=== PATIENT | female | born 1970 | race American Indian/Alaskan Native ===

== ENCOUNTER 2018-02-02 12:35 | Emergency (ER) | payer OTHER ==
[2018-02-02 13:16] LABS: Basophils % (Auto) 0.7 % (0.0-1.8); Eosinophils # (Auto) 0.1 K/mm3 (0.0-0.4); Hematocrit 38.9 % (30.3-42.9); Hemoglobin 13.3 gm/dl (10.1-14.3); Lymphocytes # (Auto) 2.1 K/mm3 (1.2-5.4); Lymphocytes % (Auto) 34.9 % (13.4-35.0); Mean Corpuscular HGB Conc 34 % (30-34); Mean Corpuscular Hemoglobin 32 pg (28-32); Mean Corpuscular Volume 94 fl (79-97); Monocytes # (Auto) 0.4 K/mm3 (0.0-0.8); Monocytes % (Auto) 7.1 % (0.0-7.3); Platelet Count 153 K/mm3 (140-440); Red Blood Count 4.14 M/mm3 (3.65-5.03)
[2018-02-02 13:34] LABS: Alanine Aminotransferase 19 units/L (7-56); Albumin 4.4 g/dL (3.9-5); BUN/Creatinine Ratio 12; Blood Urea Nitrogen 11 mg/dL (7-17); Calcium 9.5 mg/dL (8.4-10.2); Hemolysis Index 4; Lipase 46 units/L (13-60)
[2018-02-02 14:44] LABS: Bilirubin,Urine NEG (Negative); Blood,Urine NEG (Negative); Color,Urine Straw (Yellow); Protein,Urine <15 mg/dL mg/dL (Negative); Urobilinogen,Urine < 2.0 mg/dL (<2.0)
--- NOTE | 2018-02-02 15:21 | Emergency Department Report ---
ED Abdominal Pain HPI - General Chief Complaint: Abdominal Pain Stated Complaint: ABD PAIN Time Seen by Provider: 02/02/18 14:42 Source: patient Mode of arrival: Ambulatory Limitations: No Limitations - History of Present Illness MD Complaint: flank pain -: month(s) (4) Location: L flank Radiation: LUQ Severity: moderate Quality: cramping, sharp, dull Improves With: other (Tylenol) Worsens With: movement Context: other (lifts heavy boxes at work, normal physical 2 months ago in November by Dr. Enedelia Okeefe) - Related Data Previous Rx's Medication Instructions Recorded Last Taken Type Aspirin [Aspirin BABY CHEW TAB] 81 mg PO QDAY #30 tab.chew 01/10/16 Unknown Rx Hydrochlorothiazide [HCTZ] 25 mg PO QDAY #30 tablet 01/10/16 Unknown Rx Insulin Glargine [Lantus VIAL] 15 units SUB-Q QHS #10 units 01/10/16 Unknown Rx Lisinopril [Zestril TAB] 10 mg PO QDAY #30 tablet 01/10/16 Unknown Rx Metoprolol [Lopressor TAB] 25 mg PO BID #60 tablet 01/10/16 Unknown Rx metFORMIN [Glucophage] 500 mg PO BID #60 tablet 01/10/16 Unknown Rx Ibuprofen 800 mg PO Q6H PRN #20 tablet 02/02/18 Unknown Rx Allergies Allergy/AdvReac Type Severity Reaction Status Date / Time No Known Allergies Allergy Unverified 03/05/14 07:31 ED Review of Systems ROS: Stated complaint: ABD PAIN Other details as noted in HPI Comment: All other systems reviewed and negative Constitutional: denies: fever, malaise Respiratory: denies: cough Cardiovascular: denies: chest pain ED Past Medical Hx - Past Medical History Previous Medical History?: Yes Hx Hypertension: Yes Hx CVA: Yes Hx Heart Attack/AMI: No Hx Congestive Heart Failure: No Hx Diabetes: Yes (Newly diagnosed this admission.) Hx Deep Vein Thrombosis: No Hx Liver Disease: No Hx Sickle Cell Disease: No Hx Asthma: No Hx COPD: No Hx Dementia: No Hx HIV: No - Surgical History Past Surgical History?: Yes Hx Coronary Stent: No Hx Open Heart Surgery: No Hx Pacemaker: No Hx Internal Defibrillator: No Hx Cholecystectomy: No Hx Appendectomy: No Hx Breast Surgery: No Additional Surgical History: hysterectomy - Social History Smoking Status: Never Smoker Substance Use Type: Prescribed - Medications Home Medications: Home Medications Medication Instructions Recorded Confirmed Last Taken Type Aspirin [Aspirin BABY CHEW TAB] 81 mg PO QDAY #30 tab.chew 01/10/16 Unknown Rx Hydrochlorothiazide [HCTZ] 25 mg PO QDAY #30 tablet 01/10/16 Unknown Rx Insulin Glargine [Lantus VIAL] 15 units SUB-Q QHS #10 units 01/10/16 Unknown Rx Lisinopril [Zestril TAB] 10 mg PO QDAY #30 tablet 01/10/16 Unknown Rx Metoprolol [Lopressor TAB] 25 mg PO BID #60 tablet 01/10/16 Unknown Rx metFORMIN [Glucophage] 500 mg PO BID #60 tablet 01/10/16 Unknown Rx Ibuprofen 800 mg PO Q6H PRN #20 tablet 02/02/18 Unknown Rx ED Physical Exam - General Limitations: No Limitations General appearance: alert, in no apparent distress - Head Head exam: Present: atraumatic, normocephalic - Eye Eye exam: Present: normal appearance - ENT ENT exam: Present: mucous membranes moist - Neck Neck exam: Present: normal inspection. Absent: tenderness, meningismus - Respiratory Respiratory exam: Present: normal lung sounds bilaterally. Absent: respiratory distress, wheezes, rales, rhonchi - Cardiovascular Cardiovascular Exam: Present: regular rate, normal rhythm, normal heart sounds. Absent: bradycardia, tachycardia, systolic murmur, diastolic murmur, rubs, gallop - GI/Abdominal GI/Abdominal exam: Present: soft. Absent: distended, tenderness, guarding, rebound - Extremities Exam Extremities exam: Present: normal inspection - Back Exam Back exam: Present: normal inspection - Neurological Exam Neurological exam: Present: alert, oriented X3 - Psychiatric Psychiatric exam: Present: normal affect, normal mood - Skin Skin exam: Present: warm, dry, intact, normal color. Absent: rash ED Course Vital Signs 02/02/18 12:40 Temperature 98.9 F Pulse Rate 98 H Respiratory 20 Rate Blood Pressure 155/84 O2 Sat by Pulse 98 Oximetry ED Medical Decision Making - Lab Data Result diagrams: 02/02/18 12:57 02/02/18 12:57 Laboratory Results - last 24 hr 02/02/18 02/02/18 02/02/18 12:57 12:57 14:12 WBC 6.0 RBC 4.14 Hgb 13.3 Hct 38.9 MCV 94 MCH 32 MCHC 34 RDW 14.0 Plt Count 153 Lymph % (Auto) 34.9 [place] % (Auto) 7.1 Eos % (Auto) 1.0 Baso % (Auto) 0.7 Lymph # 2.1 [place] # 0.4 Eos # 0.1 Baso # 0.0 Seg Neutrophils % 56.3 Seg Neutrophils # 3.4 Sodium 136 L Potassium 3.0 L Chloride 97.5 L Carbon Dioxide 28 Anion Gap 14 BUN 11 Creatinine 0.9 Estimated GFR > 60 BUN/Creatinine Ratio 12 Glucose 116 H Calcium 9.5 Total Bilirubin 0.30 AST 16 ALT 19 Alkaline Phosphatase 67 Total Protein 7.8 Albumin 4.4 Albumin/Globulin Ratio 1.3 Lipase 46 Urine Color Straw Urine Turbidity Clear Urine pH 6.0 Ur Specific [place] 1.003 Urine Protein <15 mg/dl Urine Glucose (UA) Neg Urine Ketones Neg Urine Blood Neg Urine Nitrite Neg Urine Bilirubin Neg Urine Urobilinogen < 2.0 Ur Leukocyte Esterase Neg Urine WBC (Auto) 1.0 Urine RBC (Auto) 1.0 U Epithel Cells (Auto) 1.0 Vital Signs - 24 hr 02/02/18 12:40 Temperature 98.9 F Pulse Rate 98 H Respiratory 20 Rate Blood Pressure 155/84 O2 Sat by Pulse 98 Oximetry - Medical Decision Making Mrs. Richardson is a 47-year-old female with history of hypertension and glucose intolerance who presents with left flank pain for 4 months. 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 She has had previous back pain. However she does not feel that this is muscular. I explained that she did not have signs of kidney infection or kidney stone. I strongly recommended outpatient follow-up with potential MRI. I recommended [id number] ibuprofen. I prescribed 800 mg tabs of ibuprofen also. Critical care attestation.: If time is entered above; I have spent that time in minutes in the direct care of this critically ill patient, excluding procedure time. ED Disposition Clinical Impression: Left flank pain Disposition: DC-01 TO HOME OR SELFCARE Is pt being admited?: No Does the pt Need Aspirin: No Condition: Stable Instructions: Flank Pain (ED) Prescriptions: Ibuprofen 800 mg PO Q6H PRN #20 tablet PRN Reason: Pain , Severe (7-10) Referrals: PRIMARY CARE, [Primary Care Provider] - 3-5 Days Time of Disposition: 15:21
[2018-02-02 15:36] VITALS: BP 147/90
== END 2018-02-02 15:34 | disposition home or self-care (01) ==
LOC: ED 12:35
DX: R10.12 Left upper quadrant pain (principal); I10 Essential (primary) hypertension; E11.9 Type 2 diabetes mellitus without complications; Z86.73 Personal history of transient ischemic attack (TIA), and cerebral infarction without residual deficits; Z90.710 Acquired absence of both cervix and uterus; Z79.84 Long term (current) use of oral hypoglycemic drugs
CPT/HCPCS: 36415; 80053; 81001; 83690; 85025; 99283